=== PATIENT | male | born 1980 | race Caucasian/White ===

== ENCOUNTER 2017-04-29 19:34 | Inpatient (IN) | payer OTHER ==
[~2017-04-29] VITALS: Ht 180.3 cm; Wt 122.6 kg
[2017-04-29 20:39] LABS: MEAN CORPUSCULAR HEMOGLOBIN 28.1 pg (27.0-33.0); MEAN CORPUSCULAR HGB CONC 32.8 g/dl (32.0-36.5); MEAN CORPUSCULAR VOLUME 85.8 fl (80.0-96.0); RED CELL DISTRIBUTION WIDTH 12.4 % (11.5-14.5); WHITE BLOOD COUNT 8.8 K/mm3 (4.0-10.0)
[2017-04-29] MEDS ORDERED: AUGMENTIN 875 MG TAB PO ONE (20:45)
[2017-04-29] MEDS ORDERED: NICOTINE 21MG/24HR 1 EA TRANSDERMAL TD ONE (21:15)
[2017-04-29 21:19] LABS: ALBUMIN 3.4 GM/DL (3.2-5.2); ALBUMIN/GLOBULIN RATIO 0.77 (1.00-1.93); ALKALINE PHOSPHATASE 100 U/L (45-117); ALT/SGPT 48 U/L (12-78); ANION GAP 8 MEQ/L (8-16); AST/SGOT 25 U/L (15-37); BILIRUBIN,DIRECT < 0.1 MG/DL (0.0-0.2); BILIRUBIN,TOTAL 0.3 MG/DL (0.2-1.0); BLOOD UREA NITROGEN 15 MG/DL (7-18); CALCIUM LEVEL 8.7 MG/DL (8.5-10.1); CARBON DIOXIDE LEVEL 28 MEQ/L (21-32); CHLORIDE LEVEL 102 MEQ/L (98-107); CREATININE FOR GFR 0.72 MG/DL (0.70-1.30); GLOMERULAR FILTRATION RATE > 60.0 (>60); GLUCOSE, FASTING 99 MG/DL (70-105); POTASSIUM SERUM 4.1 MEQ/L (3.5-5.1); SODIUM LEVEL 138 MEQ/L (136-145); TOTAL PROTEIN 7.8 GM/DL (6.4-8.2)
[2017-04-29 21:58] LABS: METHADONE URINE NEGATIVE (NEGATIVE)
[2017-04-29] MEDS ORDERED: MOM 30ML SUSPENSION UDC PO PRN (23:30)
[2017-04-29] MEDS ORDERED: MAALOX 30 ML SUSP *UDC PO PRN (23:30)
[2017-04-29] MEDS ORDERED: OXAZEPAM 10 MG CAP PO PRN (23:30)
[2017-04-30] VITALS: BP 127/73
[2017-04-30] MEDS: OXAZEPAM 15 MG CAP PO SCH ×3 (01:13→22:03)
[2017-04-30 06:00] VITALS: BP 123/64
[2017-04-30] MEDS: NICOTINE 21MG/24HR 1 EA TRANSDERMAL TD SCH (09:35)
[2017-04-30 12:00] VITALS: BP 141/76
[2017-04-30 18:00] VITALS: BP 127/76
[2017-04-30] MEDS: traZODone 50 MG TAB PO PRN (21:59)
--- NOTE | 2017-04-30 23:00 | HPE ---
DATE OF ADMISSION: 04/30/2017 CHIEF COMPLAINT: Feels depressed. SUBJECTIVE: He is 36 years old. He is . I understand he has a couple of children. He has been feeling increasingly depressed, suicidal. Thought of various ways of taking his life. Is somewhat vague on this. Says has not been doing well for the last few months, possibly a little longer, and has been using drugs, mostly methamphetamines. Says has used it intravenous. Is misusing Suboxone as well, which he gets off the street. Says used to be on Suboxone a couple of years ago and that it helped him quite considerably, but then he started using methamphetamines as well, and he was discharged from the Suboxone clinic, near [facility]. Has been increasingly depressed. His has left him just recently. He says she is at his brother's place, and he feels she has essentially left because of his drug use. He has been feeling down. He has been feeling despondent for a while, several weeks. Sleep has been erratic, appetite fair. Focus is difficult at times. Has felt hopeless. Has had thoughts of hurting himself. Says that life changed considerably about 3 or 4 years ago when he was put on Suboxone, after he had been misusing narcotics overly. Says it changed considerably for him, in that he had a job, did not have craving, felt better overall, less depressed, less anxious, then started using methamphetamines. Suggests this was about a year ago. His doctor then asked him to leave. He says his use of methamphetamines increased since then. No history consistent with hypomania nor mitul. PAST PSYCHIATRIC HISTORY: None formally. Says was at some point given some medicine. Is not quite sure what it was but says it did not help. FAMILY PSYCHIATRIC HISTORY: Suggests has had difficulties with depression in some members of the family but no details. SUBSTANCE ABUSE HISTORY: As indicated above, has had trouble with methamphetamines. No major periods when he has used or misused alcohol. SOCIAL HISTORY: Is local. Raised locally. Was brought up by his mother. Says there was a stepfather in the picture later as well. Says has not talked to his mother, and neither do the other siblings. Is fairly close to his brother. He and his have been together for a few years, but now have had difficulties, but he says, in fact, knowing her from high school. He just earlier today spoke with her for the first time in quite while. In fact, he says it is since she left, two weeks ago. MENTAL STATUS EXAMINATION: He is overweight, somewhat unkempt. Cooperative, though at times a bit guarded. No abnormal movements noted. He is coherent. Fair eye contact. Mood is depressed. Vague on suicidal thoughts. Denies any plans of harming self, nor anyone else. No current evidence of psychosis. Cognition grossly intact. His judgment is quite questionable, as is insight. VITAL SIGNS: Blood pressure 123/64, pulse 74, temperature 98. INVESTIGATIONS: These show a complete blood count essentially within normal limits with slight decrease at hemoglobin at 13.9. Metabolic profile essentially within normal limits. Toxicology positive for amphetamines. ASSESSMENT: 1. Other specified depressive disorder. 2. Amphetamine use disorder. 3. 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 Patient has been significantly depressed. Has been using drugs. Has never effectively been free of drugs to make an assessment regarding comorbid mood or anxiety disorders. Considerable marital difficulties, which have further exacerbated these concerns. PLAN: He is admitted to the inpatient psychiatry unit. We will place him on relevant precautions. We will attempt at obtaining collateral information. He will be observed. We will hold off on introducing antidepressants, as the drug use may well be inducing it. This may need to be revisited. He will be involved in individual, group, and milieu therapy. He will be discharged with followup once he is stable. I anticipate 5-7-day stay. Says has a bed for an inpatient unit in [place], but was told the wait is about 2 weeks. He was hoping to hear from the by now. Further recommendations will be made, depending on the clinical picture. The assessment took 30 minutes.
[2017-05-01 06:00] VITALS: BP 109/65
[2017-05-01] MEDS: NICOTINE 21MG/24HR 1 EA TRANSDERMAL TD SCH (09:16)
[2017-05-01] MEDS: OXAZEPAM 15 MG CAP PO SCH (09:16)
[2017-05-01 16:12] VITALS: BP 109/65
[2017-05-01] MEDS ORDERED: METHADONE 5 MG TAB (S0109) PO ONE (17:00)
[2017-05-01 18:00] VITALS: BP 130/68
--- NOTE | 2017-05-01 18:43 | IPN ---
DATE: 05/01/2017 CHIEF COMPLAINT: Feels down and distressed. SUBJECTIVE: Feels down and distressed. Says has diarrhea as well, no nausea, feels anxious, feels he is withdrawing, feels it is mostly from the methamphetamines rather than the Suboxone. Says not had such symptoms before in terms of withdrawal. He is not sure where he stands with his . She plans to visit. Sleep has been unsettled. MENTAL STATUS EXAMINATION: Neat, cooperative, though possibly a bit guarded. Fair to good eye contact. Coherent. No agitation. Appears mildly irritable. Denies any suicidal thoughts or intents. No homicidal ideas or intents. No evidence of any psychosis. Judgment and insight are questionable. ASSESSMENT: 1. Other specified depressive disorder. 2. Amphetamine use disorder. 3. Consider amphetamine withdrawal. 4. 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 Some of his symptoms also contributed by the misuse of Suboxone, as well as withdrawal. PLAN: I would suggest using methadone 5 mg twice a day for the next two days to help with withdrawal symptoms. This, in addition to monitoring him for other withdrawal, including using oxazepam. We will look at decreasing the dose of the oxazepam from tomorrow onwards. He should be encouraged to participate in activities on the unit. He will be seeing the psychiatrist and the treatment team assigned to him tomorrow.
[2017-05-01] MEDS: MUPIROCIN 2% CREAM 30GM TOP SCH (21:00)
[2017-05-01] MEDS: CLINDAMYCIN 150 MG CAP PO SCH (21:00)
[2017-05-01] MEDS: ACETAMINOPHEN TAB 650MG DOSE (2X325MG) PO PRN (21:23)
[2017-05-01] MEDS: OXAZEPAM 10 MG CAP PO SCH (21:23)
[2017-05-01] MEDS: traZODone 50 MG TAB PO PRN (21:24)
--- NOTE | 2017-05-02 05:37 | HPE ---
DATE OF ADMISSION: 04/29/2017 HISTORY OF PRESENT ILLNESS: Please refer to psychiatric history and evaluation for further details on this admission. This examination and history is intended for medical issues, which may need treatment, followup or consultation on this 36-year-old male. ALLERGIES: No known drug allergies. PRIMARY CARE PROVIDER: He currently has known. SOCIAL HISTORY: He is . ETOH none. Smokes one pack of cigarettes per day. Recreational drug use: He uses intravenous (IV) methamphetamine (meth) and IV Suboxone. PAST MEDICAL HISTORY: Negative. PAST SURGICAL HISTORY: Negative. HOME MEDICATIONS: None. FAMILY HISTORY: Noncontributory. LABORATORY STUDIES: WBC 8.8, hemoglobin 15.9, hematocrit 42.4, platelets 440. Electrolytes were normal. BUN 15, creatinine 0.72. Urine was positive for methamphetamine. REVIEW OF SYSTEMS: Ten system review was done. The patient requests hepatitis panel and that will be ordered. The patient complains of constipation and Milk of Magnesia is ordered, and nausea and will order Zofran. Other than that he complains of an open sore where he tried to inject himself and missed the vein on his right forearm. Otherwise ten systems review is unremarkable. OBJECTIVE: VITAL SIGNS: Height 71 inches, weight 122.6 kilograms, body mass index (BMI) 37.7, blood pressure 109/65, pulse 78, respirations 16, temperature 97.1. GENERAL: 36-year-old cooperative male in no acute distress. The patient is awake, alert and oriented times three. HEENT: Pupils equal, round, reactive to light. Extraocular muscles intact. Cornea and sclerae clear. Conjunctiva is normal. No facial asymmetry. Pharynx, tongue and gum is pink and moist. Tongue is midline. NECK: Neck is supple without lymphadenopathy. No thyromegaly. No goiter. Carotids 2+ without bruit. CHEST: Clear to auscultation without wheeze or retraction. HEART: Heart is regular. ABDOMEN: Benign. Bowel sounds positive. Genitourinary ()/Rectal: Not done. Extremities: Equal strength with full range of motion. No clubbing, cyanosis, and edema. Peripheral pulses are equal and palpable bilaterally. SKIN: Warm and dry. He has some healed sores around his face. He has an open sore the size of a nickel draining yellow drainage on his right forearm. IMPRESSION AND PLAN: Infected intravenous injection site, open sore right forearm. Ordered Bactroban ointment twice a day, clindamycin 500 three times a day which will give until the culture comes back, Zofran 4 mg sublingual every four hours taken as needed for nausea, Milk of Magnesia for constipation. He was notified to let staff know if he was unable to have any effect from the Milk of Magnesia.
[2017-05-02 06:23] VITALS: BP 124/70
[2017-05-02] MEDS: OXAZEPAM 10 MG CAP PO SCH ×2 (08:34→20:54)
[2017-05-02] MEDS: CLINDAMYCIN 150 MG CAP PO SCH ×3 (08:34→20:52)
[2017-05-02] MEDS: NICOTINE 21MG/24HR 1 EA TRANSDERMAL TD SCH (08:34)
[2017-05-02] MEDS: METHADONE 5 MG TAB (S0109) PO SCH ×2 (08:34→20:54)
[2017-05-02] MEDS: MUPIROCIN 2% CREAM 30GM TOP SCH ×2 (08:37→20:54)
--- NOTE | 2017-05-02 10:01 | MHIPNPDOC ---
[facility] Progress Note Progress Note DATE OF SERVICE: 05/02/17 HISTORY: Patient is 36-year-old male who was admitted to [facility] after indicating he is becoming increasingly depressed and suicidal with thoughts of various ways of taking his life, was vague at intake in terms of plan. Patient informed patternmaker sample that he had been using drugs, mostly methamphetamine IV , had also been abusing Suboxone which she has been buying on the street. Patient told patternmaker sample that his recently left him due to his substance abuse, apparently now has protection order in place for self and children. Box Toe Cementer met with patient today to assess treatment progress on inpatient unit. Patient reported current anxiety level /10, depression /10, denied suicidal and homicidal ideation, denied auditory or visual hallucinations, denied urge to engage in self-injurious behavior. Patient indicated he is motivated for treatment at this time stating, "I know I have to do to get them all back," referring to and children. Patient indicates symptoms of anxiety and depression are predominantly related to current state of relationship with , verbalizes remorse and motivation for treatment in effort to repair relationship. Patient describes sleep as "okay," reports ongoing challenges to energy level and concentration and focus, states appetite remains low. Patient indicates he continues to experience symptoms of withdrawal which he attributes more to methamphetamine and Suboxone. Medication options were reviewed with patient who states he took "drugs like Zoloft, a million of them," is unable to tell which medications he has taken, states medications were ineffective and informs creative services writer he does not want to take additional medications prior to going to rehabilitation at this time. Patient presents with no signs of acute distress at time of interaction. VITAL SIGNS: See below. NEW TEST RESULTS: No new results. Labs at intake indicate low Hgb and AGR. Patient has infected IV site, open sore to right forearm, PA is aware and is treating. UDS positive for methamphetamine patient indicates he was also misusing Suboxone EKG pending Serology pending CURRENT MEDICATIONS: See below. MENTAL STATUS EXAMINATION: Patient is a 36 year old male, who is cooperative, withdrawn and isolative, makes poor eye contact, is disheveled, dressed in own clothing, ambulates with steady gait, appears stated age Speech: Is of normal rate, rhythm, low volume, spontaneous, coherent Language skills are intact Thought processes: Linear, logical, directed Thought content: Rational, logical, no tangentiality or paranoia noted Abstract reasoning, and computation: Requires further evaluation Description of associations: Intact. Description of abnormal or psychotic thoughts: Denies suicidal or homicidal ideation, denies auditory or visual hallucinations, does not appear to be responding to internal stimuli, does not endorse bizarre paranoid ideation, denies preoccupation with violence and obsessions. Judgment: Poor Insight: Poor Orientation: A and O 3 Recent and remote memory: Appears intact Attention span and concentration: Requires further evaluation Language: Within normal limits Fund of knowledge: Appears adequate Mood: "Pretty down, I just want to go to rehabilitation sorting get my and kids back." Affect: "Blunted." DIAGNOSES: Unspecified depressive disorder, polysubstance use disorder, rule out substance-induced mood disorder ASSESSMENT: Patient is 36-year-old male who is adjusting slowly to unit , has been isolative, and has not been attending groups. Patient indicates he wants to participate in inpatient substance abuse treatment, indicates he is on a waiting list for facility in [place]. Medication options were reviewed with patient who agrees to consider taking antidepressant in effort to reduce symptoms of anxiety and depression once in rehabilitation but declines at this time, indicates withdrawal protocol is helpful, is aware he has PRN medication available to him if needed. Patient denies current suicidal or homicidal ideation and verbalizes awareness of how to access supportive services on the unit if needed. Will continue to taper patient off of methadone and Serax as tolerated by patient and will encourage patient to take antidepressant. Patient has also been utilizing trazodone for sleep with good effect reported. Will monitor patient's response to medications and monitor for side effects, will evaluate patient's safety, resolution of suicidal ideation, and discharge readiness. Patient indicates at time of discharge she would like a bed to bed transfer to inpatient substance abuse treatment, enrollment coordinator is attempting to submit referrals and work with patient on this discharge plan. MANAGEMENT PLAN: Encourage patient to take antidepressant medication. Continue withdrawal protocol comprised of Serax and methadone and taper as tolerated by patient. Continue trazodone 50 mg po hs PRN insomnia Maintain safety precautions Patient to attend groups and participate in unit programming to develop coping strategies Engage patient in discharge planning process and arrange meeting with support system to ensure safe discharge planning when appropriate Patient to follow up with PCM upon discharge TIME SPENT: 35 minutes. Vital Signs Vital Signs Date Time Temp Pulse Resp B/P (MAP) Pulse Ox O2 Delivery O2 Flow Rate FiO2 05/02/17 08:34 16 05/02/17 06:23 98.1 81 124/70 (88) 05/01/17 16:12 98 Room Air Current Medications Current Medications Acetaminophen (Tylenol Tab) 650 mg Q6HP PRN PO HEADACHE or DISCOMFORT Last administered on 05/01/17 21:23; Start 04/29/17 at 23:30; Stop 05/29/17 at 23:29 Al Hydrox/Mg Hydrox/Simethicone (Mylanta) 30 ml Q4HP PRN PO HEARTBURN/ INDIGESTION; Start 04/29/17 at 23:30; Stop 05/29/17 at 23:29 Clindamycin HCl (Cleocin) 300 mg TID PO Last administered on 05/02/17 08:34; Start 05/01/17 at 21:00; Stop 05/08/17 at 20:59 Home Med (Med Rec Complete!) ASDIRECTED XX ; Start 04/29/17 at 21:30; Stop at 21:30; Status DC Magnesium Hydroxide (Milk Of Magnesia) 30 ml DAILYPRN PRN PO CONSTIPATION; Start 04/29/17 at 23:30; Stop 05/29/17 at 23:29 Methadone HCl (Dolophine) 5 mg BID PO Last administered on 05/02/17 08:34; Start 05/02/17 at 09:00; Stop 05/09/17 at 08:59 Mupirocin (Bactroban 2% Cream) BID to sore on ri... BID TOP Last administered on 05/02/17 08:37; Start 05/01/17 at 21:00; Stop 05/31/17 at 20:59 Nicotine (Nicoderm Cq 21mg) 1 patch DAILY TD Last administered on 05/02/17 08: 34; Start 04/30/17 at 09:00; Stop 05/30/17 at 08:59 Oxazepam (Serax) 20 mg BID PO Last administered on 05/02/17 08:34; Start 05/01 at 21:00; Stop 05/04/17 at 07:00 Oxazepam (Serax) 30 mg BID PO Last administered on 05/01/17 09:16; Start at 21:00; Stop 05/01/17 at 16:55; Status DC Oxazepam (Serax) 30 mg Q4HP PRN PO WITHDRAWAL SYMPTOMS; Start 04/29/17 at 23:30 ; Stop 05/06/17 at 23:29 Trazodone HCl (Desyrel) 50 mg QHSP PRN PO INSOMNIA Last administered on 21:24; Start 04/29/17 at 23:30; Stop 05/29/17 at 23:29 Allergies Coded Allergies: No Known Allergies (Unverified , 04/29/17) La Mayer May 02, 2017 10:01
[2017-05-02 12:00] VITALS: BP 126/69
[2017-05-02 18:00] VITALS: BP 128/76
[2017-05-02] MEDS: traZODone 50 MG TAB PO PRN (20:52)
[2017-05-03] MEDS: ACETAMINOPHEN TAB 650MG DOSE (2X325MG) PO PRN (04:55)
[2017-05-03 06:16] VITALS: BP 135/74
--- NOTE | 2017-05-03 07:16 | ECGEPIP ---
Stationary ECG Study [facility] Test Date: 2017-05-02 Pat Name: SURESH DUMONT Department: Room: [place] [address] Gender: M Ict Programmer: : 1980 Requested By: La Mayer Order Number: [id number] Reading MD: Artur Rios Measurements Intervals [place] Rate: 70 P: 1 VA: 135 QRS: 26 QRSD: 100 T: 27 QT: 359 QTc: 388 Interpretive Statements Normal sinus rhythm with sinus arrhythmia Normal EKG Comparison tracing not on file Electronically Signed On 05-03-2017 7:15:58 EDT by Artur Rios
[2017-05-03] MEDS: METHADONE 5 MG TAB (S0109) PO SCH (08:38)
[2017-05-03] MEDS: OXAZEPAM 10 MG CAP PO SCH (08:39)
[2017-05-03] MEDS: CLINDAMYCIN 150 MG CAP PO SCH ×3 (08:41→21:16)
[2017-05-03] MEDS: NICOTINE 21MG/24HR 1 EA TRANSDERMAL TD SCH (08:41)
[2017-05-03] MEDS ORDERED: OXAZEPAM 10 MG CAP PO ONE (09:00)
--- NOTE | 2017-05-03 09:00 | MHIPNPDOC ---
[facility] Progress Note Progress Note DATE OF SERVICE: 05/03/17 HISTORY: Patient is 36-year-old male who was admitted to [facility] after indicating he is becoming increasingly depressed and suicidal with thoughts of various ways of taking his life, was vague at intake in terms of plan. Patient informed mortgage loan reviewer that he had been using drugs, mostly methamphetamine IV , had also been abusing Suboxone which she has been buying on the street. Patient told mortgage loan reviewer that his recently left him due to his substance abuse, apparently now has protection order in place for self and children. Solution Professional met with patient today to assess treatment progress on inpatient unit. Patient abruptly stop withdrawal protocol yesterday and was today demanding to be transferred to inpatient substance abuse treatment, was informed today that receiving rehabilitation is requiring observation to monitor for withdrawal symptoms, will except patient for inpatient treatment on . When patient was informed of transfer he indicated he is experiencing symptoms of withdrawal and requested to be restarted on withdrawal protocol with taper to be discontinued and time for transfer, is requesting 1 time dose of Suboxone instead of methadone. Patient is today also agreeable to initiating antidepressant in effort to reduce symptoms of anxiety and depression, indicates Celexa has been effective in the past, denies medication side effects , further denies history of hypomania or mitul symptoms. Patient rates current anxiety level 7/10, depression 7/10, denies suicidal and homicidal ideation, denies auditory and visual hallucinations, denies urge to engage in self- injurious behavior. Patient continues to verbalize remorse for impact of substance abuse on family and motivation for treatment in effort to repair relationship. Patient had meeting with career development coordinator/teacher and CPS and has been informed of current status of relationship with and children and possibility of legal charges due to apparently having methamphetamine lab in his home. Patient indicates he is sleeping well with utilization of trazodone, reports improvement to energy level and appetite, reports ongoing challenges to concentration and focus. Patient reports achiness to joints, denies other symptoms of physical pain and presents with no signs of acute distress at time of interaction. VITAL SIGNS: See below. NEW TEST RESULTS: No new results. Labs at intake indicate low Hgb and AGR. Patient has infected IV site, open sore to right forearm, PA is aware and is treating. UDS positive for methamphetamine patient indicates he was also misusing Suboxone 05/01/17 Serology - arm culture - no cell/organisms seen 05/02/17 EKG sinus rhythm with sinus arrhythmia normal EKG comparison tracing on file, clinical consultation sought, no follow-up recommended at this time CURRENT MEDICATIONS: See below. MENTAL STATUS EXAMINATION: Patient is a 36 year old male, who is cooperative, withdrawn and isolative, makes poor eye contact, is disheveled, dressed in own clothing, ambulates with steady gait, appears stated age Speech: Is of normal rate, rhythm, low volume, spontaneous, coherent Language skills are intact Thought processes: Linear, logical, directed Thought content: Rational, logical, no tangentiality or paranoia noted Abstract reasoning, and computation: Requires further evaluation Description of associations: Intact. Description of abnormal or psychotic thoughts: Denies suicidal or homicidal ideation, denies auditory or visual hallucinations, does not appear to be responding to internal stimuli, does not endorse bizarre paranoid ideation, denies preoccupation with violence and obsessions. Judgment: Poor Insight: Poor Orientation: A and O 3 Recent and remote memory: Appears intact Attention span and concentration: Requires further evaluation Language: Within normal limits Fund of knowledge: Appears adequate Mood: "Not good, as long as I'm going to be here I might as well start medication for my depression." Patient reports anxiety and depression, no mood lability noted Affect: Blunted. DIAGNOSES: Unspecified depressive disorder, polysubstance use disorder, rule out substance-induced mood disorder ASSESSMENT: Patient is 36-year-old male who is adjusting slowly to unit , has been less isolative today, has been attending some groups. Patient reiterates he wants to participate in inpatient substance abuse treatment, is aware discharge is currently set for for him to be transferred to rehabilitation facility. Patient is today agreeable to starting Celexa, notes he has taken medication in the past with good effect, has requested to be placed back on withdrawal protocol in preparation for tapered to be completed in time for transfer. Patient is utilizing trazodone with good effect for sleep. Patient denies medication side effects. Patient denies current suicidal or homicidal ideation and verbalizes awareness of how to access supportive services on the unit if needed. Will continue Serax taper and patient has had 1 time Suboxone dose today, currently denies symptoms of craving or withdrawal. Will continue to monitor patient's response to medications and monitor for side effects, will evaluate patient's safety, resolution of suicidal ideation, and discharge readiness. Patient indicates at time of discharge he wants a bed to bed transfer to inpatient substance abuse treatment, is aware transfer is tentatively scheduled for morning to inpatient substance abuse treatment. MANAGEMENT PLAN: Initiate med trial Celexa 10 mg po q am. Suboxone 2 mg sl X 1, Serax 10 mg po q day 2 days then stop. Continue trazodone 50 mg po hs PRN insomnia Maintain safety precautions Patient to attend groups and participate in unit programming to develop coping strategies Engage patient in discharge planning process and arrange meeting with support system to ensure safe discharge planning when appropriate Patient to follow up with PCM upon discharge TIME SPENT: 35 minutes. Vital Signs Vital Signs Date Time Temp Pulse Resp B/P (MAP) Pulse Ox O2 Delivery O2 Flow Rate FiO2 05/03/17 08:36 Room Air 05/03/17 06:16 97.2 88 18 135/74 (94) 05/01/17 16:12 98 Current Medications Current Medications Acetaminophen (Tylenol Tab) 650 mg Q6HP PRN PO HEADACHE or DISCOMFORT Last administered on 05/03/17 04:55; Start 04/29/17 at 23:30; Stop 05/29/17 at 23:29 Al Hydrox/Mg Hydrox/Simethicone (Mylanta) 30 ml Q4HP PRN PO HEARTBURN/ INDIGESTION; Start 04/29/17 at 23:30; Stop 05/29/17 at 23:29 Clindamycin HCl (Cleocin) 300 mg TID PO Last administered on 05/03/17 08:41; Start 05/01/17 at 21:00; Stop 05/08/17 at 20:59 Home Med (Med Rec Complete!) ASDIRECTED XX ; Start 04/29/17 at 21:30; Stop at 21:30; Status DC Magnesium Hydroxide (Milk Of Magnesia) 30 ml DAILYPRN PRN PO CONSTIPATION; Start 04/29/17 at 23:30; Stop 05/29/17 at 23:29 Methadone HCl (Dolophine) 5 mg BID PO Last administered on 05/02/17 08:34; Start 05/02/17 at 09:00; Stop 05/09/17 at 08:59 Mupirocin (Bactroban 2% Cream) BID to sore on ri... BID TOP Last administered on 05/02/17 20:54; Start 05/01/17 at 21:00; Stop 05/31/17 at 20:59 Nicotine (Nicoderm Cq 21mg) 1 patch DAILY TD Last administered on 05/03/17 08: 41; Start 04/30/17 at 09:00; Stop 05/30/17 at 08:59 Oxazepam (Serax) 20 mg BID PO Last administered on 05/02/17 08:34; Start 05/01 at 21:00; Stop 05/04/17 at 07:00 Oxazepam (Serax) 30 mg BID PO Last administered on 05/01/17 09:16; Start at 21:00; Stop 05/01/17 at 16:55; Status DC Oxazepam (Serax) 30 mg Q4HP PRN PO WITHDRAWAL SYMPTOMS; Start 04/29/17 at 23:30 ; Stop 05/06/17 at 23:29 Trazodone HCl (Desyrel) 50 mg QHSP PRN PO INSOMNIA Last administered on 20:52; Start 04/29/17 at 23:30; Stop 05/29/17 at 23:29 Allergies Coded Allergies: No Known Allergies (Unverified , 04/29/17) La Mayer May 03, 2017 09:00
[2017-05-03] MEDS: MUPIROCIN 2% CREAM 30GM TOP SCH ×2 (09:29→21:00)
[2017-05-03] MEDS ORDERED: BUPRENORPHINE/NALOXONE 2-0.5MG SUBLINGUAL TABLET(SUBOXONE) SL ONE (14:30)
[2017-05-03] MEDS: CitaloPRAM (CeleXA) 10 MG TABLET PO SCH (14:30)
[2017-05-03 18:35] VITALS: BP 140/73
[2017-05-03] MEDS: traZODone 50 MG TAB PO PRN (21:16)
[2017-05-04 06:28] VITALS: BP 108/67
[2017-05-04] MEDS ORDERED: OXAZEPAM 10 MG CAP PO SCH (09:00)
[2017-05-04] MEDS: MUPIROCIN 2% CREAM 30GM TOP SCH ×2 (09:00→21:00)
[2017-05-04] MEDS: CitaloPRAM (CeleXA) 10 MG TABLET PO SCH (09:04)
[2017-05-04] MEDS: CLINDAMYCIN 150 MG CAP PO SCH ×3 (09:04→21:27)
[2017-05-04] MEDS: NICOTINE 21MG/24HR 1 EA TRANSDERMAL TD SCH (09:06)
[2017-05-04] MEDS ORDERED: TRAZO50TA PO (09:17)
[2017-05-04] MEDS ORDERED: CELE10TA PO (09:17)
[2017-05-04 12:33] VITALS: BP 142/91
--- NOTE | 2017-05-04 14:38 | MHIPNPDOC ---
[facility] Progress Note Progress Note DATE OF SERVICE: 05/04/17 HISTORY: Patient is 36-year-old male who was admitted to [facility] after indicating he is becoming increasingly depressed and suicidal with thoughts of various ways of taking his life, was vague at intake in terms of plan. Patient informed clinical trial coordinator that he had been using drugs, mostly methamphetamine IV , had also been abusing Suboxone which she has been buying on the street. Patient told clinical trial coordinator that his recently left him due to his substance abuse, apparently now has protection order in place for self and children. Rubber Press Operator met with patient today to assess treatment progress on inpatient unit. Patient makes requests for additional Suboxone dosing, is informed that he may not transfer to rehabilitation on Suboxone, indicates he does not need medication, is aware withdrawal protocol remains available to him if needed. Patient reports 5/10 depression, 6/10 anxiety, denies suicidal and homicidal ideation, denies auditory and visual hallucinations, denies urge to engage in self-injurious behavior. Patient indicates Celexa is helping to reduce symptoms of anxiety and depression, is agreeable to dose increase in effort to further reduce symptoms. Patient continues to verbalize remorse for impact of substance abuse on family and motivation for treatment in effort to repair relationship. Patient is aware that discharge/transfer to inpatient rehabilitation is scheduled for tomorrow morning and that brother will transport patient. Patient indicates he is sleeping well with utilization of trazodone, reports improvement to energy level and appetite, reports ongoing challenges to concentration and focus. Patient presents with no signs of acute distress at time of interaction. VITAL SIGNS: See below. NEW TEST RESULTS: Labs at intake indicate low Hgb and AGR. Patient has infected IV site, open sore to right forearm, PA is aware and is treating. UDS positive for methamphetamine patient indicates he was also misusing Suboxone 05/02/17 EKG sinus rhythm with sinus arrhythmia normal EKG comparison tracing on file, clinical consultation sought, no follow-up recommended at this time CURRENT MEDICATIONS: See below. MENTAL STATUS EXAMINATION: Patient is a 36 year old male, who is cooperative, somewhat withdrawn and isolative, makes fair eye contact, remains disheveled, dressed in own clothing, ambulates with steady gait, appears stated age Speech: Is of normal rate, rhythm, low volume, spontaneous, coherent Language skills are intact Thought processes: Linear, logical, directed Thought content: Rational, logical, no tangentiality or paranoia noted Abstract reasoning, and computation: Requires further evaluation Description of associations: Intact. Description of abnormal or psychotic thoughts: Denies suicidal or homicidal ideation, denies auditory or visual hallucinations, does not appear to be responding to internal stimuli, does not endorse bizarre paranoid ideation, denies preoccupation with violence and obsessions. Judgment: Poor Insight: Limited Orientation: A and O 3 Recent and remote memory: Appears intact Attention span and concentration: Requires further evaluation Language: Within normal limits Fund of knowledge: Appears adequate Mood: "Okay, still sad about the situation with my and kids but I feel good about going to rehabilitation." Patient reports some improvement to symptoms of anxiety and depression, no mood lability noted Affect: Blunted. DIAGNOSES: Unspecified depressive disorder, polysubstance use disorder, rule out substance-induced mood disorder ASSESSMENT: Patient is 36-year-old male who is adjusting slowly to unit , has been attending some groups, has been cooperative staff and has presented with no behavior management challenges. Patient reiterates he wants to attend inpatient substance abuse treatment, is aware discharge is currently set for tomorrow morning for him to be transferred to rehabilitation facility. Patient is today agreeable to Celexa dose increase, has completed Suboxone and Serax tapers and is aware PRN withdrawal protocol remains available to him if needed. Patient currently denies unmanageable symptoms of craving or withdrawal and states he feels motivated to go to rehabilitation. Patient is utilizing trazodone with good effect for sleep, hydroxyzine has been added to address anxiety symptoms PRN. Patient denies medication side effects. Patient denies current suicidal or homicidal ideation and verbalizes awareness of how to access supportive services on the unit if needed. Will continue to monitor patient's response to medications and monitor for side effects, will evaluate patient's safety and discharge/transfer readiness. Patient is requesting transfer to [facility] tomorrow morning and discharge/transfer is tentatively scheduled for tomorrow morning with brother to provide transport at patient's request. MANAGEMENT PLAN: Increase Celexa to 20 mg po q am and trazodone 50 mg po hs PRN insomnia. Maintain safety precautions Patient to attend groups and participate in unit programming to develop coping strategies Engage patient in discharge planning process and arrange meeting with support system to ensure safe discharge planning when appropriate Patient to follow up with PCM upon discharge TIME SPENT: 35 minutes. Vital Signs Vital Signs Date Time Temp Pulse Resp B/P (MAP) Pulse Ox O2 Delivery O2 Flow Rate FiO2 05/04/17 12:33 97.7 74 16 142/91 (108) 05/04/17 08:37 Room Air 05/01/17 16:12 98 Current Medications Current Medications Acetaminophen (Tylenol Tab) 650 mg Q6HP PRN PO HEADACHE or DISCOMFORT Last administered on 05/03/17 04:55; Start 04/29/17 at 23:30; Stop 05/29/17 at 23:29 Al Hydrox/Mg Hydrox/Simethicone (Mylanta) 30 ml Q4HP PRN PO HEARTBURN/ INDIGESTION; Start 04/29/17 at 23:30; Stop 05/29/17 at 23:29 Citalopram Hydrobromide (CeleXA) 10 mg DAILY PO Last administered on 05/04/17 09:04; Start 05/03/17 at 09:00; Stop 06/02/17 at 08:59 Clindamycin HCl (Cleocin) 300 mg TID PO Last administered on 05/04/17 09:04; Start 05/01/17 at 21:00; Stop 05/08/17 at 20:59 Home Med (Med Rec Complete!) ASDIRECTED XX ; Start 04/29/17 at 21:30; Stop at 21:30; Status DC Magnesium Hydroxide (Milk Of Magnesia) 30 ml DAILYPRN PRN PO CONSTIPATION Last administered on 05/03/17 13:07; Start 04/29/17 at 23:30; Stop 05/29/17 at 23:29 Methadone HCl (Dolophine) 5 mg BID PO Last administered on 05/02/17 08:34; Start 05/02/17 at 09:00; Stop 05/03/17 at 14:56; Status DC Mupirocin (Bactroban 2% Cream) BID to sore on ri... BID TOP Last administered on 05/03/17 09:29; Start 05/01/17 at 21:00; Stop 05/31/17 at 20:59 Nicotine (Nicoderm Cq 21mg) 1 patch DAILY TD Last administered on 05/04/17 09: 06; Start 04/30/17 at 09:00; Stop 05/30/17 at 08:59 Oxazepam (Serax) 10 mg DAILY PO Last administered on 05/04/17 09:04; Start at 09:00; Stop 05/04/17 at 12:00; Status DC Oxazepam (Serax) 20 mg BID PO Last administered on 05/02/17 08:34; Start 05/01 at 21:00; Stop 05/03/17 at 14:24; Status DC Oxazepam (Serax) 30 mg BID PO Last administered on 05/01/17 09:16; Start at 21:00; Stop 05/01/17 at 16:55; Status DC Oxazepam (Serax) 30 mg Q4HP PRN PO WITHDRAWAL SYMPTOMS; Start 04/29/17 at 23:30 ; Stop 05/06/17 at 23:29 Trazodone HCl (Desyrel) 50 mg QHSP PRN PO INSOMNIA Last administered on 21:16; Start 04/29/17 at 23:30; Stop 05/29/17 at 23:29 Allergies Coded Allergies: No Known Allergies (Unverified , 04/29/17) La Mayer May 04, 2017 14:38
[2017-05-04] MEDS ORDERED: hydrOXYzine 50 MG TAB PO PRN (14:45)
[2017-05-04] MEDS ORDERED: MUPI30CR TOP (14:55)
[2017-05-04] MEDS ORDERED: CLEO150C PO (14:55)
[2017-05-04] MEDS ORDERED: CitaloPRAM (CeleXA) 10 MG TABLET PO ONE (15:15)
[2017-05-04] MEDS ORDERED: HYDRO50TAB PO (15:23)
[2017-05-04] MEDS ORDERED: CELE20TA PO (15:23)
[2017-05-04 18:23] VITALS: BP 146/85
[2017-05-04 21:00] VITALS: BP 140/84
[2017-05-04] MEDS: traZODone 50 MG TAB PO PRN (21:27)
[2017-05-05 06:00] VITALS: BP 141/87
[2017-05-05] MEDS: CLINDAMYCIN 150 MG CAP PO SCH (08:02)
[2017-05-05] MEDS: MUPIROCIN 2% CREAM 30GM TOP SCH (08:04)
[2017-05-05] MEDS: NICOTINE 21MG/24HR 1 EA TRANSDERMAL TD SCH (08:04)
[2017-05-05] MEDS ORDERED: CitaloPRAM (CeleXA) 20 MG TAB PO SCH (09:00)
--- NOTE | 2017-05-05 16:22 | MHDSPDOC ---
[facility] Discharge Summary Discharge Summary DATE OF ADMISSION: Apr 29, 2017 at 23:18 DATE OF DISCHARGE: May 05, 2017 at 08:54 HISTORY: Patient is 36 years old. He is . I understand he has a couple of children. He has been feeling increasingly depressed, suicidal. Thought of various ways of taking his life. Is somewhat vague on this. Says has not been doing well for the last few months, possibly a little longer, and has been using drugs, mostly methamphetamines. Says has used it intravenous. Is misusing Suboxone as well, which he gets off the street. Says used to be on Suboxone a couple of years ago and that it helped him quite considerably, but then he started using methamphetamines as well, and he was discharged from the Suboxone clinic, near [facility]. Has been increasingly depressed. His has left him just recently. He says she is at his brother's place, and he feels she has essentially left because of his drug use. He has been feeling down. He has been feeling despondent for a while, several weeks. Sleep has been erratic, appetite fair. Focus is difficult at times. Has felt hopeless. Has had thoughts of hurting himself. Says that life changed considerably about 3 or 4 years ago when he was put on Suboxone, after he had been misusing narcotics overly. Says it changed considerably for him, in that he had a job, did not have craving, felt better overall, less depressed, less anxious, then started using methamphetamines. Suggests this was about a year ago. His doctor then asked him to leave. He says his use of methamphetamines increased since then. No history consistent with hypomania nor mitul. PAST PSYCHIATRIC HISTORY: None formally. Says was at some point given some medicine. Is not quite sure what it was but says it did not help. MEDICAL HISTORY: Labs at intake indicated low Hgb and AGR. Patient has infected IV site, open sore to right forearm, PA has addressed. UDS positive for methamphetamine patient indicates he was also misusing Suboxone 05/02/17 EKG sinus rhythm with sinus arrhythmia normal EKG comparison tracing on file, clinical consultation sought, no follow-up recommended FAMILY PSYCHIATRIC HISTORY: Suggests has had difficulties with depression in some members of the family but no details. SUBSTANCE ABUSE HISTORY: As indicated above, has had trouble with methamphetamines. No major periods when he has used or misused alcohol. SOCIAL HISTORY: Is local. Raised locally. Was brought up by his mother. Says there was a stepfather in the picture later as well. Says has not talked to his mother, and neither do the other siblings. Is fairly close to his brother. He and his have been together for a few years, but now have had difficulties, but he says, in fact, knowing her from high school. He just earlier today spoke with her for the first time in quite while. In fact, he says it is since she left, two weeks ago. TREATMENT PROGRESS ON UNIT: Patient has slowly adjusted to unit, has been attending some groups, has been cooperative with staff, engages minimally with peers, has presented with no behavior management challenges. Patient was started by aircraft engine installer on Serax and methadone taper which he abruptly discontinued and indicated he wanted to be transferred to inpatient substance abuse treatment immediately. Upon discovering that inpatient treatment would not accept him immediately, he requested to be put back on taper which would be completed in time for him to be transferred to inpatient treatment date of entry , received Suboxone and Serax per withdrawal protocol. Patient denies symptoms of withdrawal. Patient indicates today he is experiencing no depression, reports 3/10 anxiety related to transferring to inpatient substance abuse treatment, denies suicidal or homicidal ideation, denies auditory or visual hallucinations, and denies urge to engage in self-injurious behavior. Patient has not needed to utilize PRN anxiolytic, has been utilizing trazodone for sleep with good effect reported. Patient was started on Celexa which he stated he had taken in the past with good effect and patient indicates medication is effective in controlling symptoms of anxiety and depression. Patient denies medication side effects. Patient denies irritability, agitation, impulsivity, and mood lability. Patient states he is sleeping well, reports improvement to energy level and concentration and focus, states his appetite is stable. Patient is future oriented and goal-directed, indicates he is motivated to complete treatment so that he can work toward reunification with and children. Patient is able to effectively engage in the safety planning process and verbalizes concrete strategies for mitigating symptoms of anxiety, depression, and suicidal ideation should they reemerge. Patient informs chart writer he is prepared for discharge and wants to transfer today to inpatient substance abuse treatment. Family meeting has been completed and patient's brother denies having concerns pertaining to patient's transfer to inpatient substance abuse treatment, and has stated he would like to provide transportation. Patient verbalizes understanding of and agreement with discharge plan. MENTAL STATUS EXAMINATION ON DISCHARGE: Patient is a 36 year old male, who is pleasant and cooperative, more engageable today, makes limited eye contact, appears less disheveled today, is dressed in own clothing, ambulates with steady gait, appears stated age Speech: Is of normal rate, rhythm, volume, spontaneous, coherent Language skills are intact Thought processes: Linear, logical, directed Thought content: Rational, logical, no tangentiality or paranoia noted Abstract reasoning, and computation: Requires further evaluation Description of associations: Intact. Description of abnormal or psychotic thoughts: Denies suicidal or homicidal ideation, denies auditory or visual hallucinations, does not appear to be responding to internal stimuli, does not endorse bizarre paranoid ideation, denies preoccupation with violence and obsessions. Judgment: Limited, some improvement during treatment Insight: Limited, some improvement during treatment Orientation: A and O 3 Recent and remote memory: Appears intact Attention span and concentration: Requires further evaluation Language: Within normal limits Fund of knowledge: Appears adequate Mood: "Better now that I'm moving on in going to rehabilitation." Patient reports low-grade anxiety related to discharge, denies depression, no mood lability noted Affect: Blunted, he brightens at times, congruent with mood. CONDITION ON DISCHARGE: Stable, no suicidal or homicidal ideation DIAGNOSES ON DISCHARGE: Unspecified depressive disorder, polysubstance use disorder, rule out substance-induced mood disorder MEDICATIONS ON DISCHARGE: See below FOLLOW UP PLAN: Continue Celexa to 20 mg po q am and trazodone 50 mg po hs PRN insomnia. Patient to discharge today and to be transported by brother to [facility] for long-term inpatient substance abuse treatment Patient to follow-up with PCM within 5-7 days of discharge TIME SPENT COORDINATING CARE: 25 minutes Vital Signs/I&Os Vital Signs Date Time Temp Pulse Resp B/P (MAP) Pulse Ox O2 Delivery O2 Flow Rate FiO2 05/05/17 06:00 99.9 76 16 141/87 (105) 05/04/17 08:37 Room Air 05/01/17 16:12 98 Laboratory Data Microbiology Microbiology 05/01/17 Gram Stain - Final, Complete 05/01/17 Wound Culture - Final, Complete Staphylococcus Aureus Medications Scheduled Citalopram Hydrobromide (Celexa) 20 Mg Tab, 20 MG PO QAM for DEPRESSION, #1 Clindamycin Hcl (Cleocin) 150 Mg Cap, 300 MG PO TID for infection, #42 Mupirocin (Mupirocin) 1 Dose/30 Gm Cream, 0 DOSE TOP BID for INFECTION, #1 Scheduled PRN Hydroxyzine HCl (Hydroxyzine HCl) 50 Mg Tab, 50 MG PO Q6HP PRN for ANXIETY, #1 Trazodone HCl (Trazodone HCl) 50 Mg Tab, 50 MG PO QHSP PRN for INSOMNIA, #1 Allergies Coded Allergies: No Known Allergies (Unverified , 04/29/17) La Mayer May 05, 2017 16:21
== END 2017-05-05 08:54 | disposition home or self-care (01) | DRG 754 ==
LOC: M ED 20:11 → M ED INP 23:18 → M PSY 04-30 00:02
PROVIDERS: ADMIT Psychiatry & Neurology Psychiatry; ATTEND Psychiatry & Neurology Psychiatry
DX: F32.9 Major depressive disorder, single episode, unspecified (principal); R45.851 Suicidal ideations; F19.94 Other psychoactive substance use, unspecified with psychoactive substance-induced mood disorder; F17.210 Nicotine dependence, cigarettes, uncomplicated; L98.499 Non-pressure chronic ulcer of skin of other sites with unspecified severity; K59.00 Constipation, unspecified; Z79.899 Other long term (current) drug therapy

== ENCOUNTER → 2017-08-10 | Outpatient (CLI) | payer MEDICAID ==
[~2017-08-10] MED LIST: CELE10TA PO; CELE20TA PO; CLEO150C PO; HYDRO50TAB PO; MUPI30CR TOP; TRAZO50TA PO
== END ==
LOC: M OUTALCOH 08:18
PROVIDERS: ATTEND Psychiatry & Neurology Psychiatry
DX: F15.20 Other stimulant dependence, uncomplicated (principal)